=== PATIENT | female | born 2005 | race Caucasian/White ===

== ENCOUNTER 2023-04-07 01:17 | Day surgery (SDC) | payer BC, SELFPAY ==
[2023-03-28 09:12] VITALS: BMI 25.0
--- NOTE | 2023-04-04 10:59 | PC.NURSE ---
Patient called regarding upcoming procedure. Reviewed preop instructions, appointment times, and procedure prep.
[2023-04-07 08:35] VITALS: BP 133/64; PULSE 88; RESP 18; TEMP 36.2; O2SAT 100; BMI 26.6
[2023-04-07] MEDS: LACTATED RINGERS 1,000 ML 150 ML IV CONT (09:04)
--- NOTE | 2023-04-07 09:38 | PM.HPGS ---
History of Present Illness History of Present Illness Consent: Risks, benefits, and alternatives have been discussed and questions answered. Patient agrees to proceed with procedure. Chief complaint: Hematemesis, Melena, GERD Narrative: Jarret Gamble is a 17 year old female here for egd, had episode of hematemesis 12/2022 for which went to ER, no more episodes and doing ok right now, on omeprazole. Review of Systems Constitutional: Constitutional: Denies headache(s) and Denies weakness Eyes: Eyes: Denies blurry vision ENT: Reports Normal hearing present, Denies headache(s) and Denies neck pain Cardiovascular: Cardiovascular: Denies chest pain and Denies dyspnea Respiratory: Respiratory: Denies dyspnea Gastrointestinal: Gastrointestinal: Reports no additional gastrointestinal complaints Genitourinary: Genitourinary: Denies dysuria Musculoskeletal: Musculoskeletal: Denies neck pain Integumentary/Breasts: Skin/Breast: Denies dry skin Neurologic: Reports Normal hearing present, Denies headache(s) and Denies weakness Psychiatric: Psychiatric: Denies anxiety Endocrine: Endocrine: Denies change in body appearance Hematologic/Lymphatic: Hematologic/Lymphatic: Denies easy bleeding Allergic/Immunologic: Allergic/Immunologic: Denies urticaria PMFSH Past Medical History Medical History (Updated 03/26/23 @ 09:55 by Elisabeth Das APRN) Anxiety GERD (gastroesophageal reflux disease) Hematemesis Hiatal hernia History of paroxysmal supraventricular tachycardia Melena Upper GI bleed Surgical History Surgical History (Updated 03/26/23 @ 09:49 by Elisabeth Das APRN) History of cardiac radiofrequency ablation Social History Social History Smoking status: Never smoker Living arrangements: with family Spiritual care concerns: No Meds Home Medications and Allergies Home Medications Medication Instructions Recorded Confirmed Type buspirone 15 mg tablet 15 mg PO TID 03/26/23 04/07/23 History krill oil 1,000 mg-om3 130 mg-dha 1 cap PO DAILY 03/26/23 04/07/23 History 40 mg-epa 80 [id number]-[id number]-astax cap (Krill Oil ([place] 3 and 6)) levomefolate calcium 7.5 mg tablet 7.5 mg PO DAILY 03/26/23 04/07/23 History (L-Methylfolate) [id number]-Ne-nrwo-minerals 1 tablet PO DAILY 03/26/23 04/07/23 History omeprazole 20 mg capsule,delayed 20 mg PO DAILY #30 caps 03/26/23 04/07/23 Rx release sertraline 50 mg tablet 50 mg PO DAILY 03/26/23 04/07/23 History Allergies Allergy/AdvReac Type Severity Reaction Status Date / Time Penicillins Allergy Mild Hives Verified 04/07/23 08:43 latex Allergy Redness of Verified 04/07/23 08:43 Skin Vital Signs Vital Signs - 24 hr 04/07/23 08:35 Temperature 97.1 F L Pulse Rate 88 Respiratory Rate 18 Blood Pressure 133/64 Pulse Oximetry 100 Oxygen Delivery Room Air Exam Const: General: comfortable and no acute distress HENMT: Face/Nose/Sinus: Normal nares present Eyes: General: appearance normal, both eyes and all related structures Neck: Neck: no JVD Resp: Auscultation: clear to auscultation bilaterally Cardio: Rate: regular rate Rhythm: regular rhythm GI: Inspection: non-distended GI Palp: Yes Soft to palpation Skin: General skin exam: normal color Neuro: General: gait normal Speech: normal speech Extrem: General: normal to inspection Psych: Mental Status: mental status grossly normal Assessment and Plan Assessment and plan (1) Hematemesis: Code(s): K92.0 - Hematemesis Status: Acute Assessment and Plan: egd to assess asymptomatic now
[2023-04-07 09:54] VITALS: BP 96/58; PULSE 77; RESP 16; O2SAT 99
[2023-04-07 10:04] VITALS: BP 97/69; PULSE 70; RESP 16; O2SAT 99
[2023-04-07 10:14] VITALS: BP 102/66; PULSE 84; RESP 16; O2SAT 99
== END 2023-04-07 10:25 | disposition home or self-care (01) ==
PROVIDERS: Visit Provider Internal Medicine Gastroenterology
PROC: 0DJ08ZZ Inspection of Upper Intestinal Tract, Via Natural or Artificial Opening Endoscopic (ICD-10-PCS; CPT 43235; principal; 2023-04-07 09:30)
DX: K29.50 Unspecified chronic gastritis without bleeding (principal); K44.9 Diaphragmatic hernia without obstruction or gangrene; K92.0 Hematemesis; F41.9 Anxiety disorder, unspecified; K21.9 Gastro-esophageal reflux disease without esophagitis; Z86.79 Personal history of other diseases of the circulatory system
CPT/HCPCS: 43239; 88305; J2704; J7120